=== PATIENT | female | born 1995 | race Caucasian/White ===

== ENCOUNTER 2016-11-21 16:28 | Emergency (ER) | payer OTHER ==
[~2016-11-21] VITALS: Ht 167.6 cm; Wt 90.7 kg
[~2016-11-21 16:28] MED LIST: B12,B-12,B 12500 MC1 PO; CARAFATE1 G1 PO; KLOR-CON 1010 ME1 PO; PROTONIX40 MG PO; Zofran4 MG PO
[2016-11-21 16:33] VITALS: BP 104/78
[2016-11-21] MEDS ORDERED: BIOTENE DE (16:39)
[2016-11-21] MEDS ORDERED: FISH OIL500 M1 PO (16:40)
[2016-11-21 17:09] LABS: BASO % 0.2 % (0.0-1.0); EOS % 0.2 % (1.0-4.0); HEMATOCRIT 39.6 % (37.0-47.0); HEMOGLOBIN 13.1 g/dl (12.0-16.0); IG # 0.1 10*3/uL (0.0-0.1); LYMPH # 2.5 10*3/uL (1.3-4.4); LYMPH % 21.7 % (27.0-41.0); MEAN CELL VOLUME 93.2 fl (81.0-99.0); MEAN CORPUSCULAR HGB 30.8 pg (27.0-31.0); MEAN CORPUSCULAR HGB CONC 33.1 g/dl (33.0-37.0); MEAN PLATELET VOLUME 10.4 fl (9.6-12.3); MONO # 0.8 10*3/uL (0.1-1.0); MONO % 6.9 % (3.0-9.0); NEUT # 8.1 10*3/uL (2.3-7.9); NEUT % 70.6 % (47.0-73.0); PLATELET COUNT AUTOMATED 294 10*3/uL (130-400); RED BLOOD COUNT 4.25 10*6/uL (4.10-5.10); WHITE BLOOD COUNT 11.4 10*3/uL (4.8-10.8)
[2016-11-21 17:28] LABS: ALBUMIN 4.1 gm/dl (3.1-4.5); ALKALINE PHOSPHATASE 95 U/L (45-117); BILIRUBIN, TOTAL 0.4 mg/dl (0.2-1.0); BUN 12 mg/dl (7-24); CARBON DIOXIDE 27 mmol/L (21-32); CHLORIDE 104 mmol/L (98-107); EST GLOM FILT AFRICAN AMERICAN > 60 ml/min; GLUCOSE 91 mg/dL (65-99); POTASSIUM 3.7 mmol/L (3.5-5.1); SGOT/AST 14 IU/L (3-35); SGPT/ALT 25 U/L (12-78); SODIUM 141 mmol/L (136-145); TOTAL PROTEIN 7.9 gm/dL (6.4-8.2)
[2016-11-21 17:33] LABS: BILIRUBIN 1+ (NEGATIVE); BLOOD TRACE-INTACT (NEGATIVE); COLOR YELLOW (YELLOW); GLUCOSE NEGATIVE (NEGATIVE); KETONE 3+ (NEGATIVE); LEUKO ESTERASE NEGATIVE (NEGATIVE); NITRITE NEGATIVE (NEGATIVE); PROTEIN TRACE (NEGATIVE); UROBILINOGEN 0.2 E.U./dl (0.2-1.0)
[2016-11-21 17:45] LABS: BACTERIA 1+; CLARITY SL CLOUDY (CLEAR); EPITHELIAL CELLS TNTC; MUCOUS TRACE; URINE REFLEX COMMENT NO (NO); WBC 0-2 wbc/hpf (0-5)
[2016-11-21] MEDS ORDERED: PROTONIX40 MG PO (17:51)
[2016-11-21] MEDS ORDERED: CARAFATE1 G1 PO (17:51)
[2016-11-25] MEDS ORDERED: GAVISCON REGULA1 CT1 PO (14:41)
[2016-11-25] MEDS ORDERED: Zofran4 MG PO (14:41)
[2016-11-25] MEDS ORDERED: CARAFATE1 G1 PO (14:41)
[2016-11-25] MEDS ORDERED: REGLAN5 MG PO (14:41)
[2016-11-25] MEDS ORDERED: PROTONIX40 MG PO (14:42)
[2016-11-26] MEDS ORDERED: PYRIDIUM200 M1 PO (20:05)
[2016-11-26] MEDS ORDERED: MACROBID100 M1 PO (20:05)
== END 2016-11-21 18:17 | disposition home or self-care (01) ==
LOC: ED 16:28
PROVIDERS: Nurse Practitioner Family
DX: K29.50 Unspecified chronic gastritis without bleeding (principal); F17.210 Nicotine dependence, cigarettes, uncomplicated; Z98.890 Other specified postprocedural states; Z90.49 Acquired absence of other specified parts of digestive tract

== ENCOUNTER 2017-02-22 08:37 | Emergency (ER) | payer OTHER ==
[~2017-02-22] VITALS: Ht 167.6 cm; Wt 99.8 kg
[~2017-02-22 08:37] MED LIST changes: +BIOTENE DE; +FISH OIL500 M1 PO; +GAVISCON REGULA1 CT1 PO; +MACROBID100 M1 PO; +PYRIDIUM200 M1 PO; +REGLAN5 MG PO
[2017-02-22 09:01] LABS: BILIRUBIN NEGATIVE (NEGATIVE); BLOOD 3+ (NEGATIVE); CLARITY CLOUDY (CLEAR); COLOR YELLOW (YELLOW); GLUCOSE NEGATIVE (NEGATIVE); KETONE NEGATIVE (NEGATIVE); LEUKO ESTERASE NEGATIVE (NEGATIVE); NITRITE NEGATIVE (NEGATIVE); PROTEIN TRACE (NEGATIVE); UROBILINOGEN 0.2 E.U./dl (0.2-1.0)
[2017-02-22 09:12] LABS: BACTERIA TRACE; MUCOUS 1+; RBC TNTC rbc/hpf (0-2); URINE REFLEX COMMENT YES (NO); WBC 0-2 wbc/hpf (0-5)
[2017-02-22 09:46] LABS: BASO % 0.3 % (0.0-1.0); EOS # 0.1 10*3/uL (0.0-0.4); EOS % 1.4 % (1.0-4.0); HEMATOCRIT 39.1 % (37.0-47.0); HEMOGLOBIN 12.4 g/dl (12.0-16.0); LYMPH # 2.5 10*3/uL (1.3-4.4); LYMPH % 26.5 % (27.0-41.0); MEAN CELL VOLUME 94.9 fl (81.0-99.0); MEAN CORPUSCULAR HGB 30.1 pg (27.0-31.0); MEAN CORPUSCULAR HGB CONC 31.7 g/dl (33.0-37.0); MEAN PLATELET VOLUME 10.8 fl (9.6-12.3); MONO # 0.6 10*3/uL (0.1-1.0); MONO % 6.3 % (3.0-9.0); NEUT # 6.2 10*3/uL (2.3-7.9); NEUT % 65.1 % (47.0-73.0); PLATELET COUNT AUTOMATED 262 10*3/uL (130-400); RED BLOOD COUNT 4.12 10*6/uL (4.10-5.10); WHITE BLOOD COUNT 9.5 10*3/uL (4.8-10.8)
[2017-02-22 10:03] LABS: ALBUMIN 3.6 gm/dl (3.1-4.5); ALKALINE PHOSPHATASE 87 U/L (45-117); BILIRUBIN, TOTAL 0.2 mg/dl (0.2-1.0); BUN 11 mg/dl (7-24); CARBON DIOXIDE 29 mmol/L (21-32); CHLORIDE 110 mmol/L (98-107); EST GLOM FILT AFRICAN AMERICAN > 60 ml/min; GLUCOSE 93 mg/dL (65-99); MAGNESIUM 2.2 mg/dL (1.5-2.1); POTASSIUM 3.8 mmol/L (3.5-5.1); SGOT/AST 17 IU/L (3-35); SGPT/ALT 25 U/L (12-78); SODIUM 140 mmol/L (136-145); TOTAL PROTEIN 7.2 gm/dL (6.4-8.2)
[2017-02-22 10:05] LABS: C-REACTIVE PROTEIN < 0.29 MG/DL (0-0.3)
[2017-02-22] MEDS ORDERED: MACROBID100 M1 PO (10:24)
[2017-02-22] MEDS ORDERED: PYRIDIUM200 M1 PO (10:43)
[2017-02-22 16:39] VITALS: BP 127/91
== END 2017-02-22 21:50 | disposition home or self-care (01) ==
LOC: ED 08:37
PROVIDERS: Emergency Medicine
DX: R39.15 Urgency of urination (principal); R31.9 Hematuria, unspecified; F12.10 Cannabis abuse, uncomplicated; F17.210 Nicotine dependence, cigarettes, uncomplicated; Z79.899 Other long term (current) drug therapy

== ENCOUNTER 2017-03-01 08:39 | Emergency (ER) | payer OTHER ==
[~2017-03-01] VITALS: Ht 167.6 cm; Wt 99.8 kg
[2017-03-01 08:50] VITALS: BP 143/89
[2017-03-01] MEDS ORDERED: KEFLEX 500 MG E2 CAP PO (08:51)
[2017-03-01] MEDS ORDERED: FLOMAX0.4 MG PO (08:52)
[2017-03-01] MEDS ORDERED: KEFLEX500 M1 PO (08:52)
[2017-03-01 09:26] LABS: BILIRUBIN NEGATIVE (NEGATIVE); BLOOD 3+ (NEGATIVE); CLARITY CLEAR (CLEAR); COLOR YELLOW (YELLOW); GLUCOSE NEGATIVE (NEGATIVE); KETONE NEGATIVE (NEGATIVE); LEUKO ESTERASE 2+ (NEGATIVE); NITRITE NEGATIVE (NEGATIVE); PROTEIN NEGATIVE (NEGATIVE); SPECIFIC GRAVITY <= 1.005 (1.005-1.030); UROBILINOGEN 0.2 E.U./dl (0.2-1.0)
[2017-03-01 09:35] LABS: BASO % 0.5 % (0.0-1.0); EOS # 0.1 10*3/uL (0.0-0.4); EOS % 0.6 % (1.0-4.0); HEMATOCRIT 35.5 % (37.0-47.0); HEMOGLOBIN 11.8 g/dl (12.0-16.0); LYMPH # 1.7 10*3/uL (1.3-4.4); LYMPH % 19.5 % (27.0-41.0); MEAN CELL VOLUME 90.8 fl (81.0-99.0); MEAN CORPUSCULAR HGB 30.2 pg (27.0-31.0); MEAN CORPUSCULAR HGB CONC 33.2 g/dl (33.0-37.0); MEAN PLATELET VOLUME 10.2 fl (9.6-12.3); MONO # 0.8 10*3/uL (0.1-1.0); MONO % 8.6 % (3.0-9.0); NEUT # 6.1 10*3/uL (2.3-7.9); NEUT % 70.3 % (47.0-73.0); PLATELET COUNT AUTOMATED 258 10*3/uL (130-400); RED BLOOD COUNT 3.91 10*6/uL (4.10-5.10); RED CELL DISTRI WIDTH 13.1 % (0-14.5); WHITE BLOOD COUNT 8.7 10*3/uL (4.8-10.8)
[2017-03-01 09:50] LABS: BACTERIA 1+; RBC TNTC rbc/hpf (0-2); URINE REFLEX COMMENT YES (NO); WBC 16-20 wbc/hpf (0-5)
[2017-03-01 09:50] LABS: ALBUMIN 3.7 gm/dl (3.1-4.5); ALKALINE PHOSPHATASE 63 U/L (45-117); BILIRUBIN, TOTAL 0.4 mg/dl (0.2-1.0); BUN 10 mg/dl (7-24); C-REACTIVE PROTEIN 0.63 MG/DL (0-0.3); CARBON DIOXIDE 30 mmol/L (21-32); CHLORIDE 104 mmol/L (98-107); EST GLOM FILT AFRICAN AMERICAN > 60 ml/min; GLUCOSE 102 mg/dL (65-99); POTASSIUM 3.2 mmol/L (3.5-5.1); SGOT/AST 12 IU/L (3-35); SGPT/ALT 24 U/L (12-78); SODIUM 142 mmol/L (136-145); TOTAL PROTEIN 7.5 gm/dL (6.4-8.2)
[2017-03-01] MEDS ORDERED: PHENERGAN25 M3 PO (11:14)
== END 2017-03-01 11:20 | disposition home or self-care (01) ==
LOC: ED 08:39
PROVIDERS: Emergency Medicine
DX: N39.0 Urinary tract infection, site not specified (principal); R31.9 Hematuria, unspecified; I10 Essential (primary) hypertension; F17.200 Nicotine dependence, unspecified, uncomplicated; Z79.899 Other long term (current) drug therapy

== ENCOUNTER 2017-09-23 07:56 | Emergency (ER) | payer SELFPAY ==
[~2017-09-23] VITALS: Ht 167.6 cm; Wt 90.7 kg
[~2017-09-23 07:56] MED LIST changes: +FLOMAX0.4 MG PO; +KEFLEX 500 MG E2 CAP PO; +KEFLEX500 M1 PO; +PHENERGAN25 M3 PO
[2017-09-23 08:03] VITALS: BP 135/79
[2017-09-23 08:40] LABS: BASO % 0.4 % (0.0-1.0); EOS % 0.2 % (1.0-4.0); HEMATOCRIT 41.5 % (37.0-47.0); HEMOGLOBIN 13.6 g/dl (12.0-16.0); LYMPH # 2.1 10*3/uL (1.3-4.4); LYMPH % 19.5 % (27.0-41.0); MEAN CELL VOLUME 92.4 fl (81.0-99.0); MEAN CORPUSCULAR HGB 30.3 pg (27.0-31.0); MEAN CORPUSCULAR HGB CONC 32.8 g/dl (33.0-37.0); MEAN PLATELET VOLUME 10.4 fl (9.6-12.3); MONO # 0.5 10*3/uL (0.1-1.0); MONO % 4.7 % (3.0-9.0); NEUT # 8.1 10*3/uL (2.3-7.9); NEUT % 74.9 % (47.0-73.0); PLATELET COUNT AUTOMATED 273 10*3/uL (130-400); RED BLOOD COUNT 4.49 10*6/uL (4.10-5.10); RED CELL DISTRI WIDTH 12.7 % (0-14.5); WHITE BLOOD COUNT 10.8 10*3/uL (4.8-10.8)
[2017-09-23 08:48] LABS: ACT PARTIAL THROMBO TIME 23.2 SECONDS (20.8-31.5)
[2017-09-23 08:51] LABS: BILIRUBIN 1+ (NEGATIVE); BLOOD TRACE-LYSED (NEGATIVE); CLARITY CLOUDY (CLEAR); COLOR YELLOW (YELLOW); GLUCOSE NEGATIVE (NEGATIVE); KETONE 2+ (NEGATIVE); LEUKO ESTERASE NEGATIVE (NEGATIVE); NITRITE NEGATIVE (NEGATIVE); SPECIFIC GRAVITY 1.015 (1.005-1.030); UROBILINOGEN 0.2 E.U./dl (0.2-1.0)
[2017-09-23 08:55] LABS: ALBUMIN 4.3 gm/dl (3.1-4.5); ALKALINE PHOSPHATASE 91 U/L (45-117); BUN 11 mg/dl (7-24); CHLORIDE 107 mmol/L (98-107); LIPASE 118 U/L (73-393); POTASSIUM 3.7 mmol/L (3.5-5.1); SGOT/AST 16 IU/L (3-35); SGPT/ALT 26 U/L (12-78); SODIUM 143 mmol/L (136-145); TOTAL PROTEIN 8.2 gm/dL (6.4-8.2)
[2017-09-23 08:57] LABS: B-hCG (QUALITATIVE) NEGATIVE (NEGATIVE)
[2017-09-23] MEDS ORDERED: ZOFRAN ODT4 MG SL (09:04)
[2017-09-23] MEDS ORDERED: OMEPRAZOLE20 M2 PO (09:04)
[2017-09-23 09:10] LABS: RBC 0-2 rbc/hpf (0-2); WBC 0-2 wbc/hpf (0-5)
== END 2017-09-23 09:48 | disposition home or self-care (01) ==
LOC: ED 07:56
PROVIDERS: Emergency Medicine
DX: R11.2 Nausea with vomiting, unspecified (principal); R19.7 Diarrhea, unspecified; K92.1 Melena; R10.9 Unspecified abdominal pain; F17.210 Nicotine dependence, cigarettes, uncomplicated; Z79.899 Other long term (current) drug therapy

== ENCOUNTER 2018-01-22 10:01 | Emergency (ER) | payer SELFPAY ==
[~2018-01-22] VITALS: Ht 167.6 cm; Wt 99.8 kg
[~2018-01-22 10:01] MED LIST changes: +OMEPRAZOLE20 M2 PO; +ZOFRAN ODT4 MG SL
[2018-01-22 10:33] LABS: BASO % 0.2 % (0.0-1.0); EOS % 0.4 % (1.0-4.0); HEMATOCRIT 43.5 % (37.0-47.0); HEMOGLOBIN 13.9 g/dl (12.0-16.0); LYMPH # 2.1 10*3/uL (1.3-4.4); LYMPH % 22.2 % (27.0-41.0); MEAN CELL VOLUME 95.8 fl (81.0-99.0); MEAN CORPUSCULAR HGB 30.6 pg (27.0-31.0); MEAN PLATELET VOLUME 10.4 fl (9.6-12.3); MONO # 0.6 10*3/uL (0.1-1.0); MONO % 6.1 % (3.0-9.0); NEUT # 6.7 10*3/uL (2.3-7.9); NEUT % 70.7 % (47.0-73.0); PLATELET COUNT AUTOMATED 287 10*3/uL (130-400); RED BLOOD COUNT 4.54 10*6/uL (4.10-5.10); RED CELL DISTRI WIDTH 12.9 % (0-14.5); WHITE BLOOD COUNT 9.5 10*3/uL (4.8-10.8)
[2018-01-22 10:48] LABS: BILIRUBIN NEGATIVE (NEGATIVE); BLOOD NEGATIVE (NEGATIVE); CLARITY CLOUDY (CLEAR); COLOR YELLOW (YELLOW); GLUCOSE NEGATIVE (NEGATIVE); KETONE NEGATIVE (NEGATIVE); LEUKO ESTERASE NEGATIVE (NEGATIVE); NITRITE NEGATIVE (NEGATIVE); UROBILINOGEN 0.2 E.U./dl (0.2-1.0)
[2018-01-22 10:48] LABS: ALBUMIN 4.1 gm/dl (3.1-4.5); ALKALINE PHOSPHATASE 93 U/L (45-117); BUN 11 mg/dl (7-24); CHLORIDE 105 mmol/L (98-107); CREATININE 0.84 mg/dL (0.55-1.02); POTASSIUM 3.7 mmol/L (3.5-5.1); SGOT/AST 17 IU/L (3-35); SGPT/ALT 26 U/L (12-78); SODIUM 139 mmol/L (136-145); TOTAL PROTEIN 8.1 gm/dL (6.4-8.2)
[2018-01-22 10:57] LABS: BACTERIA 2+; EPITHELIAL CELLS 20-30; MUCOUS 1+
[2018-01-22 12:30] VITALS: BP 122/62
== END 2018-01-22 13:13 | disposition home or self-care (01) ==
LOC: ED 10:01
PROVIDERS: Nurse Practitioner
DX: B34.9 Viral infection, unspecified (principal); F17.210 Nicotine dependence, cigarettes, uncomplicated; F12.10 Cannabis abuse, uncomplicated; Z90.49 Acquired absence of other specified parts of digestive tract; Z98.890 Other specified postprocedural states; Z79.899 Other long term (current) drug therapy

== ENCOUNTER 2018-04-27 00:59 | Emergency (ER) | payer OTHER ==
[~2018-04-27] VITALS: Ht 167.6 cm; Wt 99.8 kg
[2018-04-27 01:04] VITALS: BP 139/76
[2018-04-27] MEDS ORDERED: CLINDAMYCIN150 MG PO (01:16)
[2018-04-27] MEDS ORDERED: TYLENOL325 M1 PO (01:16)
== END 2018-04-27 01:30 | disposition home or self-care (01) ==
LOC: ED 00:59
DX: K02.9 Dental caries, unspecified (principal); E66.9 Obesity, unspecified; F17.210 Nicotine dependence, cigarettes, uncomplicated; F12.10 Cannabis abuse, uncomplicated; Z68.30 Body mass index [BMI] 30.0-30.9, adult; Z90.49 Acquired absence of other specified parts of digestive tract; Z98.890 Other specified postprocedural states

== ENCOUNTER 2018-04-29 11:06 | Emergency (ER) | payer OTHER ==
[~2018-04-29] VITALS: Ht 167.6 cm; Wt 99.8 kg
[~2018-04-29 11:06] MED LIST changes: +CLINDAMYCIN150 MG PO; +TYLENOL325 M1 PO
[2018-04-29 11:07] VITALS: BP 131/60
[2018-04-29 11:22] LABS: BILIRUBIN 1+ (NEGATIVE); BLOOD 1+ (NEGATIVE); CLARITY SL CLOUDY (CLEAR); COLOR YELLOW (YELLOW); GLUCOSE NEGATIVE (NEGATIVE); KETONE 1+ (NEGATIVE); LEUKO ESTERASE TRACE (NEGATIVE); NITRITE NEGATIVE (NEGATIVE); UROBILINOGEN 0.2 E.U./dl (0.2-1.0)
[2018-04-29 11:25] LABS: BASO % 0.2 % (0.0-1.0); EOS % 0.2 % (1.0-4.0); HEMATOCRIT 39.5 % (37.0-47.0); HEMOGLOBIN 12.9 g/dl (12.0-16.0); LYMPH # 1.9 10*3/uL (1.3-4.4); LYMPH % 15.3 % (27.0-41.0); MEAN CORPUSCULAR HGB CONC 32.7 g/dl (33.0-37.0); MEAN PLATELET VOLUME 10.4 fl (9.6-12.3); MONO # 0.7 10*3/uL (0.1-1.0); MONO % 5.2 % (3.0-9.0); NEUT # 9.9 10*3/uL (2.3-7.9); NEUT % 78.7 % (47.0-73.0); PLATELET COUNT AUTOMATED 289 10*3/uL (130-400); RED BLOOD COUNT 4.16 10*6/uL (4.10-5.10); RED CELL DISTRI WIDTH 13.1 % (0-14.5); WHITE BLOOD COUNT 12.6 10*3/uL (4.8-10.8)
[2018-04-29 11:39] LABS: BACTERIA 1+; EPITHELIAL CELLS 31-40; MUCOUS 1+; RBC 16-20 rbc/hpf (0-2)
[2018-04-29] MEDS ORDERED: ZOFRAN4 MG PO (11:40)
[2018-04-29 11:49] LABS: ALBUMIN 4.3 gm/dl (3.1-4.5); ALKALINE PHOSPHATASE 93 U/L (45-117); BUN 14 mg/dl (7-24); CHLORIDE 106 mmol/L (98-107); CREATININE 0.78 mg/dL (0.55-1.02); LIPASE 87 U/L (73-393); POTASSIUM 3.8 mmol/L (3.5-5.1); SGOT/AST 10 IU/L (3-35); SGPT/ALT 18 U/L (12-78); SODIUM 141 mmol/L (136-145)
== END 2018-04-29 13:02 | disposition home or self-care (01) ==
LOC: ED 11:06
PROVIDERS: Nurse Practitioner Family
DX: R10.84 Generalized abdominal pain (principal); R11.2 Nausea with vomiting, unspecified; R03.0 Elevated blood-pressure reading, without diagnosis of hypertension; E66.9 Obesity, unspecified; F17.210 Nicotine dependence, cigarettes, uncomplicated; F12.10 Cannabis abuse, uncomplicated; Z68.30 Body mass index [BMI] 30.0-30.9, adult; Z90.49 Acquired absence of other specified parts of digestive tract; Z98.890 Other specified postprocedural states

== ENCOUNTER 2018-05-10 07:34 | Emergency (ER) | payer OTHER ==
[~2018-05-10] VITALS: Ht 167.6 cm; Wt 99.8 kg
[2018-05-10 07:34] VITALS: BP 152/94
[~2018-05-10 07:34] MED LIST changes: +ZOFRAN4 MG PO
[2018-05-10] MEDS ORDERED: NAPROSYN500 MG PO (08:02)
[2018-05-10] MEDS ORDERED: PENICILLIN-VK500 MG PO (08:02)
== END 2018-05-10 08:26 | disposition home or self-care (01) ==
LOC: ED 07:34
DX: K02.9 Dental caries, unspecified (principal); E66.9 Obesity, unspecified; Z68.30 Body mass index [BMI] 30.0-30.9, adult; Z90.49 Acquired absence of other specified parts of digestive tract; F17.210 Nicotine dependence, cigarettes, uncomplicated; F12.10 Cannabis abuse, uncomplicated

== ENCOUNTER 2018-07-16 03:22 | Emergency (ER) | payer OTHER ==
[~2018-07-16] VITALS: Ht 167.6 cm; Wt 99.8 kg
[~2018-07-16 03:22] MED LIST changes: +NAPROSYN500 MG PO; +PENICILLIN-VK500 MG PO
[2018-07-16 03:24] VITALS: BP 112/83
[2018-07-16] MEDS ORDERED: PENICILLIN-VK500 MG PO (03:54)
== END 2018-07-16 05:21 | disposition home or self-care (01) ==
LOC: ED 03:22
DX: K04.7 Periapical abscess without sinus (principal); K04.01 Reversible pulpitis; E66.9 Obesity, unspecified; F17.210 Nicotine dependence, cigarettes, uncomplicated; F12.10 Cannabis abuse, uncomplicated; Z68.39 Body mass index [BMI] 39.0-39.9, adult; Z90.49 Acquired absence of other specified parts of digestive tract; Z98.890 Other specified postprocedural states; Z79.899 Other long term (current) drug therapy

== ENCOUNTER → 2018-07-28 | Outpatient (CLI) | payer OTHER | END | disposition home or self-care (01) | LOC: MRI 10:00 | DX: G93.6 Cerebral edema (principal); H49.11 Fourth [trochlear] nerve palsy, right eye; R42 Dizziness and giddiness; Z87.820 Personal history of traumatic brain injury ==

== ENCOUNTER 2019-03-13 10:32 | Emergency (ER) | payer OTHER ==
[~2019-03-13] VITALS: Ht 167.6 cm; Wt 95.3 kg
[~2019-03-13 10:32] MED LIST changes: +MOBIC7.5 MG PO; +PENICILLIN VK500 MG PO
[2019-03-13 10:34] VITALS: BP 124/74
[2019-03-13] MEDS ORDERED: IBU800 MG PO (11:06)
== END 2019-03-13 11:30 | disposition home or self-care (01) ==
LOC: ED 10:32
DX: K02.9 Dental caries, unspecified (principal); F17.210 Nicotine dependence, cigarettes, uncomplicated; Z79.2 Long term (current) use of antibiotics; Z79.899 Other long term (current) drug therapy; Z90.49 Acquired absence of other specified parts of digestive tract

== ENCOUNTER 2019-12-07 22:52 | Emergency (ER) | payer OTHER ==
[~2019-12-07] VITALS: Ht 162.5 cm; Wt 97.5 kg
[~2019-12-07 22:52] MED LIST changes: +IBU800 MG PO
[2019-12-07 23:05] VITALS: BP 132/88
[2019-12-07] MEDS ORDERED: CLINDAMYCIN150 MG PO (23:36)
[2019-12-07] MEDS ORDERED: Motrin,Rufen800 MG PO (23:36)
== END 2019-12-07 23:41 | disposition home or self-care (01) ==
LOC: ED 22:52
DX: K04.01 Reversible pulpitis (principal); K02.9 Dental caries, unspecified; E66.9 Obesity, unspecified; Z68.30 Body mass index [BMI] 30.0-30.9, adult; Z90.49 Acquired absence of other specified parts of digestive tract

== ENCOUNTER → 2020-05-30 | Outpatient (CLI) | payer OTHER ==
[~2020-05-30] MED LIST changes: +Motrin,Rufen800 MG PO
== END | disposition home or self-care (01) ==
LOC: RAD 14:00
DX: K59.00 Constipation, unspecified (principal)

== ENCOUNTER 2020-10-06 22:52 | Emergency (ER) | payer OTHER ==
[~2020-10-06] VITALS: Ht 167.6 cm; Wt 99.8 kg
[2020-10-06 23:01] VITALS: BP 125/79
[2020-10-06] MEDS ORDERED: CLINDAMYCIN HC300 MG PO (23:37)
== END 2020-10-06 23:43 | disposition home or self-care (01) ==
LOC: ED 22:52
DX: K04.7 Periapical abscess without sinus (principal); F17.210 Nicotine dependence, cigarettes, uncomplicated

== ENCOUNTER 2020-10-10 22:17 | Emergency (ER) | payer OTHER ==
[~2020-10-10] VITALS: Ht 167.6 cm; Wt 99.8 kg
[~2020-10-10 22:17] MED LIST changes: +CLINDAMYCIN HC300 MG PO
[2020-10-10 22:22] VITALS: BP 128/85
[2020-10-10] MEDS ORDERED: PEPCID AC20 MG PO (22:26)
[2020-10-10] MEDS ORDERED: PRILOSEC20 M1 PO (22:26)
== END 2020-10-10 23:26 | disposition home or self-care (01) ==
LOC: ED 22:17
DX: K02.9 Dental caries, unspecified (principal); F17.210 Nicotine dependence, cigarettes, uncomplicated; Z79.899 Other long term (current) drug therapy

== ENCOUNTER 2021-07-14 20:24 | Emergency (ER) | payer OTHER ==
[~2021-07-14] VITALS: Ht 167.6 cm; Wt 99.8 kg
[~2021-07-14 20:24] MED LIST changes: +PEPCID AC20 MG PO; +PRILOSEC20 M1 PO
[2021-07-14 20:37] VITALS: BP 121/63
[2021-07-14] MEDS ORDERED: Motrin,Rufen800 MG PO (21:02)
[2021-07-14] MEDS ORDERED: AMOXICILLIN500 M2 PO (21:02)
== END 2021-07-14 21:04 | disposition home or self-care (01) ==
LOC: ED 20:24
DX: K08.89 Other specified disorders of teeth and supporting structures (principal); F17.210 Nicotine dependence, cigarettes, uncomplicated; Z79.899 Other long term (current) drug therapy; Z90.89 Acquired absence of other organs; Z90.49 Acquired absence of other specified parts of digestive tract

== ENCOUNTER 2021-07-15 00:47 | Emergency (ER) | payer OTHER ==
[~2021-07-15] VITALS: Ht 167.6 cm; Wt 99.8 kg
[~2021-07-15 00:47] MED LIST changes: +AMOXICILLIN500 M2 PO
[2021-07-15 01:05] VITALS: BP 152/101
== END 2021-07-15 01:24 | disposition home or self-care (01) ==
LOC: ED 00:47
DX: K02.9 Dental caries, unspecified (principal); Z79.899 Other long term (current) drug therapy; F17.210 Nicotine dependence, cigarettes, uncomplicated

== ENCOUNTER 2022-02-02 09:41 | Emergency (ER) | payer OTHER ==
[~2022-02-02] VITALS: Wt 102.1 kg
[2022-02-02 09:45] VITALS: BP 147/89
[2022-02-02] MEDS ORDERED: MECLIZINE HCL25 M2 PO (13:55)
== END 2022-02-02 14:03 | disposition home or self-care (01) ==
LOC: ED 09:41
DX: R42 Dizziness and giddiness (principal); Z79.899 Other long term (current) drug therapy; Z98.890 Other specified postprocedural states; Z90.49 Acquired absence of other specified parts of digestive tract; Z87.891 Personal history of nicotine dependence

== ENCOUNTER 2024-01-02 13:42 | Emergency (ER) | payer OTHER ==
[~2024-01-02] VITALS: Ht 167.6 cm; Wt 115.7 kg
[~2024-01-02 13:42] MED LIST changes: +MECLIZINE HCL25 M2 PO
[2024-01-02 13:49] VITALS: BP 126/85
[2024-01-02] MEDS ORDERED: PENICILLIN VK500 MG PO (14:16)
== END 2024-01-02 14:22 | disposition home or self-care (01) ==
LOC: ED 13:42
DX: K04.7 Periapical abscess without sinus (principal); K02.9 Dental caries, unspecified; K21.9 Gastro-esophageal reflux disease without esophagitis; F17.210 Nicotine dependence, cigarettes, uncomplicated; F12.10 Cannabis abuse, uncomplicated; Z90.89 Acquired absence of other organs; Z90.49 Acquired absence of other specified parts of digestive tract; Z98.890 Other specified postprocedural states

== ENCOUNTER 2024-11-30 12:33 | Emergency (ER) | payer SELFPAY ==
[~2024-11-30] VITALS: Ht 167.6 cm; Wt 112.5 kg
[2024-11-30 12:44] VITALS: BP 136/94
[2024-11-30] MEDS ORDERED: TOBRAMYCIN 2.5 ML BOT OPH ONE (12:50)
== END 2024-11-30 12:57 | disposition home or self-care (01) ==
LOC: ED 12:33
DX: H10.9 Unspecified conjunctivitis (principal); F17.210 Nicotine dependence, cigarettes, uncomplicated; Z79.2 Long term (current) use of antibiotics; Z98.890 Other specified postprocedural states

== ENCOUNTER 2024-12-13 11:09 | Emergency (ER) | payer SELFPAY ==
[~2024-12-13] VITALS: Ht 167.6 cm; Wt 111.1 kg
[2024-12-13 11:17] VITALS: BP 128/74
[2024-12-13] MEDS ORDERED: Ciprofloxacin Hydrochloride 0.3% OPHTHLAMIC BOTTLE OPH ONE (11:55)
== END 2024-12-13 12:10 | disposition home or self-care (01) ==
LOC: ED 11:09
DX: S05.01XA Injury of conjunctiva and corneal abrasion without foreign body, right eye, initial encounter (principal); H10.9 Unspecified conjunctivitis; F17.210 Nicotine dependence, cigarettes, uncomplicated; Z90.49 Acquired absence of other specified parts of digestive tract; X58.XXXA Exposure to other specified factors, initial encounter; Y93.89 Activity, other specified; Y92.89 Other specified places as the place of occurrence of the external cause; Y99.8 Other external cause status

== ENCOUNTER 2025-06-18 19:27 | Emergency (ER) | payer SELFPAY ==
[~2025-06-18] VITALS: Ht 167.6 cm; Wt 115.7 kg
[2025-06-18 19:52] VITALS: BP 136/84
[2025-06-18] MEDS ORDERED: Dexamethasone/Tobramycin OPHTHALMIC 2.5 ML BOTTLE OPH ONE (20:05)
== END 2025-06-18 20:16 | disposition home or self-care (01) ==
LOC: ED 19:27
DX: H16.9 Unspecified keratitis (principal); F17.210 Nicotine dependence, cigarettes, uncomplicated; Z90.49 Acquired absence of other specified parts of digestive tract; K21.9 Gastro-esophageal reflux disease without esophagitis

== ENCOUNTER 2025-08-11 08:43 | Emergency (ER) | payer SELFPAY ==
[~2025-08-11] VITALS: Ht 167.6 cm; Wt 113.4 kg
[2025-08-11 09:14] VITALS: BP 129/91
[2025-08-11] MEDS ORDERED: ERYTHROMYCIN OPH1 GM OPH (09:32)
== END 2025-08-11 09:57 | disposition home or self-care (01) ==
LOC: ED 08:43
DX: H16.001 Unspecified corneal ulcer, right eye (principal); K21.9 Gastro-esophageal reflux disease without esophagitis; Z90.49 Acquired absence of other specified parts of digestive tract